=== PATIENT | female | born 1960 | race Caucasian/White ===

== ENCOUNTER 2025-08-08 10:20 | Outpatient (CLI) | payer OTHER | END 2025-08-08 10:21 | disposition home or self-care (01) | LOC: CSHMAMMO 10:20 | PROVIDERS: ATTEND Internal Medicine Hematology & Oncology | DX: Z08 Encounter for follow-up examination after completed treatment for malignant neoplasm (principal); Z85.3 Personal history of malignant neoplasm of breast | CPT/HCPCS: G0279 ==